=== PATIENT | female | born 1980 | race Caucasian/White ===

== ENCOUNTER 2017-08-02 03:50 | Outpatient (CLI) | payer MEDICAID ==
[~2017-08-02] VITALS: Ht 152.4 cm; Wt 64.2 kg
[2017-08-02 04:08] VITALS: BP 116/66; PULSE 89; RESP 18; Ht 152.4 cm; Wt 64.2 kg
[2017-08-02] MEDS ORDERED: PREN-93 PO (04:10)
--- NOTE | 2017-08-02 04:53 | PN ---
Triage Information Date/Time Reason for visit: Uterine contractions (Starting 1800 and progressively worsening) Weeks of Gestation 39+5 /Para 5/4 Diabetes: none Hypertention: none Additional information Pt reports normal FM, denies LOF or VB Objective Vital Signs Date Time Temp Pulse Resp B/P Pulse Ox O2 Delivery O2 Flow Rate FiO2 08/02/17 04:08 98.9 89 18 116/66 Room Air Heart Rate: 120's Heart Rate Comments moderate variability, +accels, no decels Contractions: < 5 Minutes Apart (q3-6 min) Exam Gen: well appearing, NAD, smiling in bed SVE: cl/long/high Disposition: Discharge Assessment/Plan Term contractions, no e/o labor Reactive NST Pt appropriate for d/c home with f/up with Dr. Obregon at 0900 this morning Labor, ROM and FKC precautions reviewed Questions answered to patient's satisfaction ABDIRASHID CRUZ MD Aug 02, 2017 04:53
--- NOTE | 2017-08-02 05:15 | TRIAGE ---
OB Triage Datetime Report Generated by CPN: 08/02/2017 05:14 Datetime: 08/02/2017 04:36 Labor Evaluation Frequency: 1.5-5 Monitor Mode: External Duration (sec)2399: 80-110 Quality: Mild Pattern: Normal: <= 5 Contractions in 10 Minutes Resting Tone [place]: Relaxed Heart Rate FHR Baseline Rate: 125 Monitor Mode: External US FHR Baseline Changes: No Baseline Change Variability: Moderate 6-25 bpm Accelerations: 15X15 Decelerations: None Category: Category I Datetime: 08/02/2017 04:00 Vaginal Exam Dilatation (cms): 0.5 Effacement (%): 0 Station: -3 Exam By: Oscar GOLDBERG RN Vaginal Bleeding: None Cervix, Consistency: Firm Cervix, Position: Posterior Datetime: 08/02/2017 03:58 EGA: 39.5 Datetime: 08/02/2017 03:45 Stage of : OB Triage Time of Arrival: 08/02/2017 03:42 Arrived By: Wheelchair Arrived From: Home Chief Complaint: CONTRACTIONS START @ 1800 08/01/17 Movement: Present Contractions: Irregular Time Contractions Began: 08/01/2017 18:00 Rupture of Membranes: Denies Vaginal Bleeding: None Vaginal Discharge: Denies Recent Sexual Intercouse: Yes Abdominal Trauma: Not Applicable Patient Complaints: None Initial Plan: CALL , EFM Maternal Assessment Level of Consciousness: Fully Conscious DTR's/Clonus: DTRs 2+; No Clonus Headache: Denies Blurred Vision: No Respiratory Effort: Unlabored; Regular Rhythm; Equal Expansion Breath Sounds, Left: Clear and Equal Breath Sounds, Right: Clear and Equal Nausea/Vomiting: Denies RUQ Epigastric Pain: Denies Facial Edema: None Temperature Route: Axillary Fall Risk Assessment History of Falling: (0) No Secondary Diagnosis: (0) No Ambulatory Aid: (0) Bedrest/Nurse Assist IV Therapy: (0) No Gait: (0) Normal/Bedrest/Immobile Mental Status: (0) Oriented to Own Ability Fall Score: 0 Fall Risk Score Definition: No Risk: No action required
== END 2017-08-02 04:45 | disposition home or self-care (01) ==
LOC: L-D 03:50 → OBT 03:50
PROVIDERS: ATTEND Obstetrics & Gynecology
DX: O62.9 Abnormality of forces of labor, unspecified (principal); Z3A.39 39 weeks gestation of pregnancy
CPT/HCPCS: G0463

== ENCOUNTER 2017-08-06 09:34 | Inpatient (IN) | payer MEDICAID ==
[~2017-08-06] VITALS: Ht 152.4 cm; Wt 64.1 kg
[~2017-08-06 09:34] MED LIST: PREN-93 PO
[2017-08-06 09:54] VITALS: BP 121/73; PULSE 83; RESP 19; Ht 152.4 cm; Wt 64.1 kg
[2017-08-06] MEDS ORDERED: HYDROCODONE/APAP (5/325) TAB PO PRN (10:30)
[2017-08-06] MEDS ORDERED: AMPICILLIN 2 GM/NS (PMX) 100 ML IV ONE (10:30)
[2017-08-06] MEDS: DEXTROSE 5%-LR 1,000 ML IV SCH ×2 (10:30→16:36)
[2017-08-06] MEDS ORDERED: MISOPROSTOL 200 MCG TAB PR PRN (10:30)
[2017-08-06] MEDS ORDERED: METHYLERGONOVINE 0.2 MG INJ IM PRN (10:30)
[2017-08-06] MEDS ORDERED: BUTORPHANOL 2 MG INJ IV PRN (10:30)
[2017-08-06] MEDS ORDERED: OXYTOCIN 30 UNITS/LR 500 ML IV SCH ×3 (10:30)
[2017-08-06] MEDS ORDERED: CARBOPROST 250 MCG INJ IM PRN (10:30)
[2017-08-06] MEDS ORDERED: OXYTOCIN 30 UNITS/LR 500 ML IV PRN (10:30)
[2017-08-06] MEDS ORDERED: LIDOCAINE 1% (MPF) 30 ML INJ INJ PRN (10:30)
--- NOTE | 2017-08-06 10:39 | TRIAGE ---
OB Triage Datetime Report Generated by CPN: 08/06/2017 10:39 Datetime: 08/06/2017 10:09 Assessment Type: Admission Assessment Vaginal Bleeding: None Maternal Assessment Level of Consciousness: Fully Conscious DTR's/Clonus: DTRs 2+; No Clonus Headache: Denies Blurred Vision: No Respiratory Effort: Unlabored; Regular Rhythm; Equal Expansion Breath Sounds, Left: Clear and Equal Breath Sounds, Right: Clear and Equal Nausea/Vomiting: Denies RUQ Epigastric Pain: Denies Lower Extremities Edema: None Degree: None Upper Extremities Edema: None Degree: None Facial Edema: None Fall Risk Assessment History of Falling: (0) No Secondary Diagnosis: (0) No Ambulatory Aid: (0) Bedrest/Nurse Assist IV Therapy: (0) No Gait: (0) Normal/Bedrest/Immobile Mental Status: (0) Oriented to Own Ability Fall Score: 0 Fall Risk Score Definition: No Risk: No action required Labor Evaluation Frequency: denies Heart Rate FHR Baseline Rate: 125 Variability: Moderate 6-25 bpm Accelerations: 15X15 Decelerations: None Category: Category I Pain Assessment Pain Scale: 0 Membrane Status: Intact Datetime: 08/06/2017 09:50 Maternal Assessment Level of Consciousness: Fully Conscious DTR's/Clonus: DTRs 1+ Headache: Denies Blurred Vision: No Respiratory Effort: Unlabored Breath Sounds, Left: Clear and Equal Breath Sounds, Right: Clear and Equal Nausea/Vomiting: Denies RUQ Epigastric Pain: Denies Facial Edema: None Labor Evaluation Frequency: IRREGULAR Monitor Mode: External Duration (sec)2399: 50-60 Quality: Mild Pattern: Normal: <= 5 Contractions in 10 Minutes Resting Tone Diagonal: Relaxed Heart Rate FHR Baseline Rate: 125 Monitor Mode: External US Variability: Minimal - Undetectable to <=5 bpm Accelerations: None Decelerations: None Category: Category II Pain Assessment Pain Scale: 0 Pain Presence: None/Denies Pain Type: N/A Pain Goal: 3 Vaginal Exam Dilatation (cms): 2.0 Effacement (%): 50 Station: -3 Exam By: MARIJA EUCEDA Membrane Status: Intact Vaginal Bleeding: None Cervix, Consistency: Soft Cervix, Position: Posterior Presentation 'A': Cephalic Datetime: 08/06/2017 09:40 Assessment Type: Triage Maternal Assessment Level of Consciousness: Fully Conscious DTR's/Clonus: DTRs 2+; No Clonus Headache: Denies Blurred Vision: No Respiratory Effort: Unlabored; Regular Rhythm; Equal Expansion Breath Sounds, Left: Clear and Equal Breath Sounds, Right: Clear and Equal Nausea/Vomiting: Denies RUQ Epigastric Pain: Denies Lower Extremities Edema: None Degree: None Upper Extremities Edema: None Degree: None Facial Edema: None Fall Risk Assessment History of Falling: (0) No Secondary Diagnosis: (0) No Ambulatory Aid: (0) Bedrest/Nurse Assist IV Therapy: (0) No Gait: (0) Normal/Bedrest/Immobile Mental Status: (0) Oriented to Own Ability Fall Score: 0 Fall Risk Score Definition: No Risk: No action required Datetime: 08/06/2017 09:30 Time of Arrival: 08/06/2017 09:30 EGA: 40.2 Arrived By: Wheelchair Arrived From: Home Chief Complaint: DFM POST DATES Movement: Present Contractions: Irregular Rupture of Membranes: Denies Vaginal Discharge: Denies Recent Sexual Intercouse: Denies Abdominal Trauma: Not Applicable Patient Complaints: Other Additional Patient Complaints: NONE Time Provider Notified: 08/06/2017 09:50 Provider Notified: SHAMSIAN Initial Plan: NST AND BPP AND VE Datetime: 08/02/2017 03:58 EGA: 39.5 Datetime: 08/02/2017 03:45 Fall Score: 0 Fall Risk Score Definition: No Risk: No action required
[2017-08-06 10:43] LABS: HEMATOCRIT 36.7 % (37.0-47.0); HEMOGLOBIN 12.4 g/dl (12.0-16.0); MEAN CORPUSCULAR HEMOGLOBIN 29.9 pg (29.0-33.0); MEAN CORPUSCULAR HGB CONC 33.8 g/dl (32.0-37.0); MEAN CORPUSCULAR VOLUME 88.4 fl (82.0-101.0); MEAN PLATELET VOLUME 10.7 fl (7.4-10.4); PLATELET COUNT 224 10^3/UL (140-415); RED BLOOD COUNT 4.15 10^6/ul (4.20-5.40); RED CELL DISTRIBUTION WIDTH 13.7 % (11.5-14.5)
[2017-08-06 10:44] LABS: BASOPHILS % 0.4 % (0.0-2.0); EOSINOPHILS % 0.5 % (0.0-7.0); LYMPHOCYTES # 2.1 10^3/ul (0.8-2.9); LYMPHOCYTES % 26.2 % (15.0-51.0); MONOCYTE # 0.5 10^3/ul (0.3-0.9); MONOCYTES % 6.4 % (0.0-11.0); NEUTROPHIL # 5.3 10^3/ul (1.6-7.5); NEUTROPHILS % 65.9 % (39.0-77.0)
[2017-08-06 11:05] LABS: INR 1.01; PROTIME 13.3 Sec (12.2-14.2)
[2017-08-06 11:06] LABS: PARTIAL THROMBOPLASTIN TIME 29.9 Sec (25.0-35.0)
--- NOTE | 2017-08-06 11:17 | RADRPT ---
PROCEDURE: US biophysical profile. CLINICAL INDICATION: Decreased motion. The patient in labor. TECHNIQUE: Multiple sonographic images of the uterus were obtained. The images were revi ewed on a PACS workstation. COMPARISON: No prior studies are available for comparison. FINDINGS: There is a single live intrauterine gestation. heart rate is 134 beats per minute. The position is cephalic. The placenta is anterior grade II with no abruption or previa. The JOY is 11.6 cm. (Normal = 5-20 cm.) Breathing Movement: 2 Gross Body Movement: 2 Tone: 2 Qualitative Amniotic Fluid Volume: 2 TOTAL: 8 IMPRESSION: 1. The biophysical score is 8/8. RPTAT: QQ .Randy Baptiste MD, Date Time Electronically viewed and signed by .Randy Baptiste MD, on 08/06/2017 11:17 .R/
--- NOTE | 2017-08-06 11:32 | RADRPT ---
PROCEDURE: US Obstetrical , limited CLINICAL INDICATION: Post dates TECHNIQUE: Multiple real-time images were acquired of the patient's maternal abdomen utilizing a curved array transducer. COMPARISON: None FINDINGS: There is a single live intrauterine fetus positioned cephalic. The placenta is implanted anteriorly and is grade 2. There is no placenta previa or abruptio. The cervical length was not measured. The amniotic fluid index measures 115.8 millimeter, which falls between the 50 at the 95th percentil e and is therefore normal. A survey of the cord and anatomy was not performed. The heart rate is 134 beats per minute. IMPRESSION: 1. Single live intrauterine fetus, cephalic presentation. 2. Anterior placenta, grade 2, no previa. 3. The heart rate is being of 133 beats per minute. 4. The amniotic fluid index measures 116 mm and falls between the 50 at the 95th percentile which i s normal. Physician Kristie Date Time Electronically viewed and signed by Physician Kristie on 08/06/2017 11:32 RH/
[2017-08-06] MEDS ORDERED: AMPICILLIN 1 GM/NS (PMX) 50 ML IV SCH (14:00)
[2017-08-06] MEDS: LACTATED RINGER'S 1,000 ML IV SCH ×3 (16:39→19:48)
--- NOTE | 2017-08-06 18:21 | HP ---
Date/Time of Note Date/Time of Note DATE: 08/06/17 TIME: 18:19 OB - History Hx of Present Free Text/Dictation pt co of decreased FM. cat II tracing with mimimal variability : 5 Para: 4 Care: Good Care Ultrasounds: Normal mid trimester US Obstetrical Complications: None Past Family/Social History * Past Medical, Surgical, Family and Obstetric Histories reviewed from chart. OB Admission Exam Vital Signs Vital Signs Vital Signs Date Time Temp Pulse Resp B/P Pulse Ox O2 Delivery O2 Flow Rate FiO2 08/06/17 09:54 98.0 83 19 121/73 99 Room Air Physical Exam HEENT: WNL Heart: Rhythm Normal Cervical Dilatation: None Station: Ballotable Membranes: Intact Last 72 hours Lab Results CBC & BMP 08/06/17 10:05 OB Assessment/Plan Reason for admission: induction of labor Plan: Induction Induction Method: per Pitocin Protocol Other plan: iup 40+ g5 co of DFM-Nst minimal variability admit for induction of labor BHUPINDER RESTREPO MD Aug 06, 2017 18:21
[2017-08-06] MEDS ORDERED: DINOPROSTONE 10 MG VAG SUPP VAG ONE (18:30)
[2017-08-07] MEDS: DEXTROSE 5%-LR 1,000 ML IV SCH (02:23)
[2017-08-07] MEDS: LACTATED RINGER'S 1,000 ML IV SCH ×3 (03:32→12:23)
[2017-08-07] MEDS ORDERED: DINOPROSTONE 10 MG VAG SUPP VAG ONE (08:00)
[2017-08-07] MEDS ORDERED: NALOXONE (0.4 MG/ML) INJ IV PRN (12:30)
[2017-08-07] MEDS ORDERED: ZOLPIDEM 5 MG TAB PO PRN (12:30)
[2017-08-07] MEDS ORDERED: DIPHENHYDRAMINE 50 MG INJ IV PRN (12:30)
[2017-08-07] MEDS ORDERED: ONDANSETRON 4 MG INJ IV PRN (12:30)
[2017-08-07] MEDS ORDERED: FENTAnyl 2MCG/ML-ROPIV 0.2% 100 ML BAG EPI SCH (12:30)
[2017-08-07] MEDS ORDERED: HYDROmorphONE 0.5 MG/0.5 ML SYG IV PRN ×2 (12:30)
[2017-08-07] MEDS ORDERED: KETOROLAC 30 MG INJ IV PRN (12:30)
--- NOTE | 2017-08-07 14:29 | LDN ---
Date/Time of Note Date/Time of Note DATE: 08/07/17 TIME: 14:28 Delivery Summary Weeks of Gestation 40 Placenta Delivered: Spontaneously Meconium: none Episiotomy: No Laceration repair: 1st degree perineal laceration repair with 2-0 chromic Anesthesia type: Epidural Estimated blood loss: 200 Sponge & Needle done & correct: Yes All needle counts correct: Yes Any foreign bodies felt in the: No Problems: Delivery Information Sex Infant Sex: female Apgars 1 Minute: 9 5 Minute: 9 Suctioning Nose & mouth suctioned at [place]: No Delee suction performed: No Umbilical Cord Umbilical cord with: 3 Vessels Cord presentations: no nuchal cord Cord Blood was obtained: Yes ELLIE WEINER MD Aug 07, 2017 14:29
[2017-08-07] MEDS ORDERED: LANOLIN 7 GM TUBE TOP PRN (14:30)
[2017-08-07] MEDS ORDERED: CARBOPROST 250 MCG INJ IM PRN (14:30)
[2017-08-07] MEDS ORDERED: BENZOCAINE 20% 56 ML SPRAY TOP PRN (14:30)
[2017-08-07] MEDS ORDERED: SENNA/DOCUSATE NA (8.6MG/50MG) TAB PO PRN (14:30)
[2017-08-07] MEDS ORDERED: OXYTOCIN 30 UNITS/LR 500 ML IV PRN (14:30)
[2017-08-07] MEDS ORDERED: OXYCODONE/ASPIRIN (4.88/325) TAB PO PRN ×2 (14:30)
[2017-08-07] MEDS ORDERED: LACTATED RINGER'S 1,000 ML IV* SCH (14:30)
[2017-08-07] MEDS ORDERED: MISOPROSTOL 200 MCG TAB PR PRN (14:30)
[2017-08-07] MEDS ORDERED: WITCH HAZEL/GLYCERIN PAD PR PRN (14:30)
[2017-08-07] MEDS ORDERED: DIBUCAINE 1% 30 GM OINT PR PRN (14:30)
[2017-08-07] MEDS ORDERED: METHYLERGONOVINE 0.2 MG INJ IM PRN (14:30)
[2017-08-07 16:50] VITALS: BP 120/65; PULSE 63; RESP 18
[2017-08-07] MEDS: IBUPROFEN 600 MG TAB PO SCH ×2 (18:08→23:39)
[2017-08-07] MEDS: OXYTOCIN 30 UNITS/LR 500 ML IV SCH ×2 (19:28→23:30)
[2017-08-07] MEDS ORDERED: OXYTOCIN 30 UNITS in LACTATED RINGER'S 497 ML IV SCH (19:30)
[2017-08-07 20:00] VITALS: BP 115/64; PULSE 77; RESP 20
[2017-08-07] MEDS: SENNA/DOCUSATE NA (8.6MG/50MG) TAB PO SCH (20:48)
[2017-08-08] MEDS: OXYTOCIN 30 UNITS/LR 500 ML IV SCH (03:30)
[2017-08-08 04:31] VITALS: BP 105/62; PULSE 72; RESP 20
[2017-08-08] MEDS: IBUPROFEN 600 MG TAB PO SCH ×3 (05:19→18:00)
[2017-08-08 07:30] VITALS: BP 100/56; PULSE 73; RESP 17
[2017-08-08] MEDS: SENNA/DOCUSATE NA (8.6MG/50MG) TAB PO SCH ×2 (08:41→21:25)
[2017-08-08 11:50] LABS: BASOPHILS % 0.3 % (0.0-2.0); EOSINOPHILS # 0.1 10^3/ul (0.0-0.5); EOSINOPHILS % 0.4 % (0.0-7.0); HEMATOCRIT 32.1 % (37.0-47.0); LYMPHOCYTES # 2.1 10^3/ul (0.8-2.9); MEAN CORPUSCULAR HEMOGLOBIN 30.1 pg (29.0-33.0); MEAN CORPUSCULAR HGB CONC 34.3 g/dl (32.0-37.0); MEAN CORPUSCULAR VOLUME 87.9 fl (82.0-101.0); MEAN PLATELET VOLUME 11.2 fl (7.4-10.4); MONOCYTE # 0.7 10^3/ul (0.3-0.9); MONOCYTES % 5.5 % (0.0-11.0); NEUTROPHIL # 8.9 10^3/ul (1.6-7.5); NEUTROPHILS % 75.4 % (39.0-77.0); PLATELET COUNT 212 10^3/UL (140-415); RED BLOOD COUNT 3.65 10^6/ul (4.20-5.40); RED CELL DISTRIBUTION WIDTH 14.1 % (11.5-14.5); WHITE BLOOD COUNT 11.8 10^3/ul (4.8-10.8)
[2017-08-08 11:55] VITALS: BP 105/64; PULSE 73; RESP 18
[2017-08-08] MEDS ORDERED: IBUPROFEN 600 MG TAB PO SCH (12:30)
[2017-08-08 15:35] VITALS: BP 105/58; PULSE 70; RESP 18
[2017-08-08 19:45] VITALS: BP 101/69; PULSE 79; RESP 18
--- NOTE | 2017-08-08 20:26 | PD.PPDC ---
[employer] Discharge Instruction Condition Patient Condition: Good Diet Diet: Resume Regular Diet Activity/Restrictions Activity: Normal Activity May Shower Restrictions: No Exercising No Lifting No Driving No Sexual Activity Nothing in the Vagina No [place] No Tampons, douche Follow-up Follow-up with Physician: 3, Week/Weeks Return to clinic for [facility]W SCHEDULER Instructions: Fever greater than 101 Chills Worsening abdominal pain Excessive Vaginal Bleeding More than 2 pads per hour Unable to tolerate diet OB Instructions: Breast Tenderness Depression Blurried Vision Headache Surgical Instructions: Incisional Drainage Incisional Redness ELLIE WEINER MD Aug 08, 2017 20:26
--- NOTE | 2017-08-08 20:28 | DS ---
Date/Time of Note Date/Time of Note DATE: 08/08/17 TIME: 20:28 Obstetrical Discharge Record Final Diagnosis Final Diagnosis: Term delivered Vaginal Delivery Obstetrical Delivery: Spontaneous, Episiotomy, Repaired Condition on Discharge Physical Assessment Last Vitals: stable afebrile Voiding: Yes Bowel Movement: Yes Breast: Soft, non-tender, Filling Fundus: Firm Episiotomy: intact Calf Tenderness: No Patient Condition: Fair ELLIE WEINER MD Aug 08, 2017 20:28
[2017-08-09 04:30] VITALS: BP 102/50; PULSE 60; RESP 18
[2017-08-09] MEDS: IBUPROFEN 600 MG TAB PO SCH ×3 (05:56→12:25)
[2017-08-09 08:15] VITALS: BP 112/67; PULSE 70; RESP 19
[2017-08-09] MEDS: SENNA/DOCUSATE NA (8.6MG/50MG) TAB PO SCH (09:27)
== END 2017-08-09 13:50 | disposition home or self-care (01) | DRG 775 ==
LOC: OBT 09:34 → L-D 09:35 → OBT 10:03 → L-D 10:04 → PP1 08-07 16:54
PROVIDERS: ADMIT Obstetrics & Gynecology; ATTEND Obstetrics & Gynecology
PROC: 10E0XZZ Delivery of Products of Conception, External Approach (ICD-10-PCS; principal; 2017-08-07)
PROC: 0HQ9XZZ Repair Perineum Skin, External Approach (ICD-10-PCS; 2017-08-07)
PROC: 3E0P3VZ Introduction of Hormone into Female Reproductive, Percutaneous Approach (ICD-10-PCS; 2017-08-07)
DX: O48.0 Post-term pregnancy (principal); O70.0 First degree perineal laceration during delivery; Z3A.40 40 weeks gestation of pregnancy; Z37.0 Single live birth
CPT/HCPCS: 62319; 76815; 76818; 85025; 85610; 85730; 86592; 86900; 86901; 87340; G0463; J0595; J2590; J3010; J7120; J7121

== ENCOUNTER 2017-12-04 06:11 | Day surgery (SDC) | END 2017-12-04 10:40 | disposition home or self-care (01) ==